=== PATIENT | female | born 1975 | race Caucasian/White ===

== ENCOUNTER 2018-06-23 15:32 | Emergency (ER) | payer BC ==
[2018-06-23 16:23] VITALS: BP 117/79
[2018-06-23] MEDS ORDERED: predniSONE TAB* 20 MG PO ONE (17:23)
--- NOTE | 2018-06-23 17:24 | UC ---
Respiratory Complaint HPI - HPI Summary HPI Summary: The patient is a 42-year-old asthmatic that has had runny nose and nasal congestion for about a month. Today she has had some wheezing and productive cough. She has had to use her rescue inhaler and has used a nebulizer. These are providing little relief. She denies any fever or chills. - History of Current Complaint Chief Complaint: UCRespiratory Stated Complaint: COUGH,FLU LIKE SYMPTOMS Time Seen by Provider: 06/23/18 17:17 Hx Obtained From: Patient Hx Last Menstrual Period: 05/31/18 Onset/Duration: Sudden Onset, Gradual Onset, Lasting Weeks Severity Initially: Mild Severity Currently: Moderate Pain Intensity: 0 Character: Cough: Productive Aggravating Factors: Nothing Alleviating Factors: Bronchodilator - helped initially Associated Signs And Symptoms: Positive: Wheezing, Nasal Congestion, Hoarseness , Sinus Discomfort Related History: Similar Episode/Dx as: - bronchitis - Allergies/Home Medications Allergies/Adverse Reactions: Allergies Allergy/AdvReac Type Severity Reaction Status Date / Time cetirizine [From Zyrtec] Allergy Rash Verified 06/23/18 16:23 amoxicillin [From Augmentin] AdvReac GI Upset Verified 06/23/18 16:23 clavulanic acid AdvReac GI Upset Verified 06/23/18 16:23 [From Augmentin] ANESTHESIA Allergy Anaphylatic Uncoded 02/03/15 15:20 Shock Home Medications: Home Medications Albuterol 2.5MG/3ML (0.083%)* [Ventolin 2.5 MG/3 ML NEB.GRAHAM*] 1 unit INH Q4HR PRN 06/23/18 [History Confirmed 06/23/18] Albuterol HFA INHALER* [Ventolin HFA Inhaler*] 2 puff INH Q4H PRN 06/23/18 [ History Confirmed 06/23/18] Zaleplon [Sonata] 10 mg PO BEDTIME 06/23/18 [History Confirmed 06/23/18] PMH/Surg Hx/FS Hx/Imm Hx Previously Healthy: Yes - chronic back pain s/p injury Respiratory History: Asthma, Bronchitis - Surgical History Surgical History: Yes Surgery Procedure, Year, and Place: 3 c-sections, RT hand CARPAL TUNNEL, T & A, TUBES IN EARS, SKIN GRAFT ON FACE X 3 - Social History Alcohol Use: Rare Substance Use Type: None Smoking Status (MU): Never Smoked Tobacco Review of Systems All Other Systems Reviewed And Are Negative: Yes Constitutional: Positive: Negative Skin: Positive: Negative Eyes: Positive: Negative ENT: Positive: Ear Ache, Nasal Discharge, Sinus Congestion, Sinus Pain/ Tenderness Respiratory: Positive: Cough Cardiovascular: Positive: Negative Gastrointestinal: Positive: Negative Genitourinary: Positive: Negative Motor: Positive: Negative Neurovascular: Positive: Negative Musculoskeletal: Positive: Arthralgia - chronic back pain Neurological: Positive: Negative Psychological: Positive: Negative Physical Exam Triage Information Reviewed: Yes Appearance: Well-Appearing, No Pain Distress, Well-Nourished Vital Signs: Initial Vital Signs Temp 98.6 F 06/23/18 16:17 Pulse 80 06/23/18 16:17 Resp 14 06/23/18 16:17 BP 117/79 06/23/18 16:17 Pulse Ox 99 06/23/18 16:17 Vital Signs Reviewed: Yes Eyes: Positive: Conjunctiva Clear ENT: Positive: Hearing grossly normal, Pharynx normal, Nasal congestion, Nasal drainage, TMs normal, Hoarse voice, Sinus tenderness, Uvula midline. Negative: Tonsillar swelling, Tonsillar exudate, Trismus, Muffled voice, Dental tenderness Neck: Positive: Supple, Nontender, No Lymphadenopathy Respiratory: Positive: No respiratory distress, No accessory muscle use, Wheezing - with forced expiration Cardiovascular: Positive: RRR Musculoskeletal: Positive: ROM Intact, No Edema Neurological Exam: Normal Neurological: Positive: Alert Psychological Exam: Normal Skin Exam: Normal UC Diagnostic Evaluation - Laboratory O2 Sat by Pulse Oximetry: 99 - normal/not hypoxic Respiratory Course/Dx - Differential Dx/Diagnosis Provider Diagnosis: Sinusitis, Acute asthmatic bronchitis, Impetigo Discharge - Sign-Out/Discharge Documenting (check all that apply): Patient Departure All imaging exams completed and their final reports reviewed: No Studies - Discharge Plan Condition: Stable Disposition: HOME Prescriptions: Amoxicillin PO (*) [Amoxicillin 875 MG (*)] 875 mg PO BID #14 tab Mupirocin 2% OINT* [Bactroban 2 % Oint*] 1 applic TOPICAL TID #1 tube predniSONE [Deltasone 20 MG TAB] 40 mg PO DAILY #10 tab Patient Education Materials: Impetigo (ED), Sinusitis (ED), Acute Bronchitis ( ED) Referrals: Jacob Bay PA [Primary Care Provider] - 5 Days Additional Instructions: continue neb or inhaler use as directed recheck for new or worsening symptoms - Billing Disposition and Condition Condition: STABLE Disposition: Home
== END 2018-06-23 17:35 | disposition home or self-care (01) ==
LOC: UCCORT 15:32
DX: J32.9 Chronic sinusitis, unspecified (principal); J45.909 Unspecified asthma, uncomplicated; L01.00 Impetigo, unspecified; Z88.0 Allergy status to penicillin; Z88.8 Allergy status to other drugs, medicaments and biological substances; Z88.4 Allergy status to anesthetic agent
CPT/HCPCS: 99212; G0463; J7512